=== PATIENT | female | born 1980 | race Caucasian/White ===

== ENCOUNTER 2020-05-25 11:01 | Emergency (ER) | payer MEDICAID ==
[~2020-05-25] VITALS: Ht 165.1 cm; Wt 63.3 kg
[2020-05-25 11:09] VITALS: BP 107/70
--- NOTE | 2020-05-25 11:17 | NUR ---
PT AMBULATED BACK TO ROOM WITHOUT DIFFICULTY.
--- NOTE | 2020-05-25 11:37 | NUR ---
PT brought back from triage with chief complaint wanting .
--- NOTE | 2020-05-25 11:43 | NUR ---
Discharge instructions reviewed
== END 2020-05-25 11:52 | disposition home or self-care (01) ==
LOC: ED 11:42
DX: O26.891 Other specified pregnancy related conditions, first trimester (principal); Z3A.01 Less than 8 weeks gestation of pregnancy
CPT/HCPCS: 99281